=== PATIENT | female | born 1960 | race Caucasian/White ===

== ENCOUNTER 2022-09-30 12:58 | Outpatient (AMB) | payer MEDICAID, SELFPAY ==
--- NOTE | 2022-09-30 13:03 | A.SPINEOV_ITS ---
Intake Intake Visit Reasons: Follow up Intake Note: Mrs. Osorio is here today for a follow up. [employer] Consultant Required: No Assessment & Plan Assessment & Plan (1) Lumbar radiculopathy: Code(s): M54.16 - Radiculopathy, lumbar region Plan Mrs Osorio is returning today to the office. This is a patient we knew from our practice at [facility], she had a thoracic abnormality on her MRI that we thought could be an arachnoid cyst. The patient was having numbness down her legs with coughing. She has an asthmatic and was experiencing these symptoms and ultimately underwent evaluation at [facility] by Dr. Pepper Zaldivar our former colleague who specializes in CSF disorders. The patient tells me that he did not feel strongly that her finding in the thoracic spine was consistent with an arachnoid cyst or that it needed surgery. She was very happy about this. Unfortunately she came down with a very severe case of RSV about 4 months ago that landed her in the hospital and she was septic and nearly . Part of that recovery an illness involved a significant amount of coughing. She noticed that she developed a severe pain radiating down her legs into her feet as well as into her medial thigh. This was much more intense than the previous issue she was having with the numbness in her legs with coughing. She continues with these symptoms. Because she has an asthmatic coughing is just part of her life. She is otherwise intact on her neurological examination. It sounds to me like it is possible she herniated a disc in her back and I would like to get a lumbar MRI to rule this out. Total amount of time spent in this visit was 20 minutes in discussion of symptoms, previous thoracic imaging results and subsequent plan of care Radhames Langston MD,PhD [facility] Orders: Orders MR lumbar spine wo con Today M54.16 - Radiculopathy, lumbar region Coding Level of Care Code Est Pt Level 3 (54026) Diagnoses Lumbar radiculopathy M54.16
== END 2022-09-30 14:28 | disposition home or self-care (01) ==
PROVIDERS: PCP Internal Medicine; Visit Provider Physician Assistant
DX: M54.16 Radiculopathy, lumbar region (principal)
CPT/HCPCS: 99213

== ENCOUNTER → 2022-09-30 12:58 | Outpatient (BNVA) | payer MEDICAID, SELFPAY | PROVIDERS: PCP Internal Medicine; Visit Provider Physician Assistant | DX: M54.16 Radiculopathy, lumbar region (principal) | CPT/HCPCS: 99213 ==

== ENCOUNTER 2022-11-04 14:31 | Outpatient (AMB) | payer MEDICAID, SELFPAY ==
--- NOTE | 2022-11-04 14:46 | HO.SPINEOV ---
Intake Intake Visit Reasons: C/o increasing pain. Intake Note: Mrs. Osorio is here today c/o increasing low back pain. Went to [facility] on Monday. [employer] Check[employer] Technician Required: No Assessment & Plan Assessment & Plan (1) Lumbar radiculopathy: Code(s): M54.16 - Radiculopathy, lumbar region Plan Mrs Osorio is back in the office today. She was following up on her lumbar MRI which she had in late September. That looked relatively unremarkable. Unfortunately about 3-4 days ago she tells me that she was getting out of bed and she put her leg down on the floor and she felt an acute pain in her low back radiating down into her right leg in her foot with bilateral groin pain. She does not report any cauda equina symptoms. No incontinence. It is just a severe amount of pain. She went to the [facility] where she was treated with tizanidine. She takes Vicodin at baseline per chronic pain issues. I had examined her today, she is very uncomfortable, crying at some point in the office she can barely stand walk and she is limping around the office. It was almost impossible to examine her. Any attempts to have her do leg lifts or straight leg raise would yield a significant amount of pain. I would say her straight leg raise is positive at about 20 degrees. She does not have foot drop and was able to demonstrate active range of motion of all muscle groups but she would not let me test her more thoroughly. A reflexes absent at the patella. It is unfortunate, but despite having an MRI just a month ago which looks absolutely fine, I think she needs another 1 to rule out a herniated disc because of the severity of the pain that she is currently in. I called her in a Medrol Dosepak, encourage her to continue on her medicines and we will try to get the MRI done CDE. Total amount of time spent in this visit was 20 minutes in discussion of symptoms, ordering imaging and subsequent plan of care Radhames Langston MD,PhD [facility] Orders: Orders MR lumbar spine wo con Today M54.16 - Radiculopathy, lumbar region Coding Level of Care Code Est Pt Level 3 (77237) Diagnoses Lumbar radiculopathy M54.16
== END 2022-11-04 15:33 | disposition home or self-care (01) ==
PROVIDERS: PCP Internal Medicine; Visit Provider Physician Assistant
DX: M54.16 Radiculopathy, lumbar region (principal)
CPT/HCPCS: 99213

== ENCOUNTER → 2022-11-04 14:31 | Outpatient (BNVA) | payer MEDICAID, SELFPAY | PROVIDERS: PCP Internal Medicine; Visit Provider Physician Assistant | DX: M54.16 Radiculopathy, lumbar region (principal) | CPT/HCPCS: 99213 ==